=== PATIENT | male | born 1965 | race Caucasian/White ===

== ENCOUNTER 2019-10-02 22:45 | Emergency (ER) | payer OTHER ==
[~2019-10-02] VITALS: Ht 182.9 cm; Wt 131.5 kg
[2019-10-02] MEDS ORDERED: METFORMIN HCL500 M3 PO (23:29)
[2019-10-02] MEDS ORDERED: NEURONTIN300 MG PO (23:30)
[2019-10-02] MEDS ORDERED: LISINOPRIL-HCT1 EAC2 PO (23:31)
[2019-10-02] MEDS ORDERED: LOPRESSOR50 MG PO (23:31)
[2019-10-02] MEDS ORDERED: ASA81BEC PO (23:31)
[2019-10-02] MEDS ORDERED: FLOMAX0.4 MG PO (23:32)
[2019-10-03 00:13] LABS: ABSOLUTE EOSINOPHILS 0.2 thou/uL (0.0-0.7); ABSOLUTE LYMPHOCYTES 2.8 thou/uL (0.8-5.3); ABSOLUTE MONOCYTES 0.8 thou/uL (0.0-1.2); ABSOLUTE NEUTROPHILS 5.8 thou/uL (1.6-8.1); BASOPHILS 0.4 %; EOSINOPHILS 2.3 %; HEMATOCRIT 42.7 % (42.0-52.0); HEMOGLOBIN 14.9 gm/dL (14.0-18.0); LYMPHOCYTES 29.2 %; MCHC 34.9 g/dL (28.0-37.0); MONOCYTES 8.1 %; MPV 8.9 fl. (7.2-11.1); NUCLEATED RBCS 0 /100WBC; PLATELET COUNT* 217 thou/uL (150-400); RBC 4.96 mil/uL (4.50-6.00); RDW-CV 14.7 % (10.5-14.5); WBC 9.7 thou/uL (4.0-11.0)
[2019-10-03 00:20] LABS: CALCIUM 8.9 mg/dL (8.5-10.1); CREATININE 0.8 mg/dL (0.6-1.3); POTASSIUM 3.8 mmol/L (3.5-5.1)
[2019-10-03 00:25] LABS: ALBUMIN 3.3 g/dL (3.4-5.0); TOTAL BILIRUBIN 0.3 mg/dL (<0.1-1.0); TOTAL PROTEIN 6.9 g/dL (6.4-8.2)
[2019-10-03] MEDS ORDERED: NORCO 5-325 TA1 EAC1 PO (02:52)
[2019-10-03] MEDS ORDERED: XARELTO15 MG PO (02:52)
[2019-10-03] MEDS ORDERED: XARELTO20 MG PO (02:52)
[2019-10-03 03:10] VITALS: BP 117/73
== END 2019-10-03 03:10 | disposition home or self-care (01) ==
LOC: M.ERS 22:45
PROVIDERS: Family Medicine
DX: I82.412 Acute embolism and thrombosis of left femoral vein (principal); I82.432 Acute embolism and thrombosis of left popliteal vein; I10 Essential (primary) hypertension; E78.00 Pure hypercholesterolemia, unspecified; I48.91 Unspecified atrial fibrillation; E11.9 Type 2 diabetes mellitus without complications; J44.9 Chronic obstructive pulmonary disease, unspecified; F17.210 Nicotine dependence, cigarettes, uncomplicated; Z88.6 Allergy status to analgesic agent

== ENCOUNTER 2019-10-05 23:55 | Observation (INO) | payer OTHER ==
[~2019-10-05] VITALS: Ht 182.9 cm; Wt 143.8 kg
[~2019-10-05 23:55] MED LIST: ASA81BEC PO; FLOMAX0.4 MG PO; LISINOPRIL-HCT1 EAC2 PO; LOPRESSOR50 MG PO; METFORMIN HCL500 M3 PO; NEURONTIN300 MG PO; NORCO 5-325 TA1 EAC1 PO; XARELTO15 MG PO; XARELTO20 MG PO
[2019-10-05 23:58] VITALS: BP 150/115
[2019-10-06] MEDS ORDERED: FLEXERIL PO (00:18)
[2019-10-06 00:28] LABS: MPV 9.1 fl. (7.2-11.1); NUCLEATED RBCS 0 /100WBC
[2019-10-06 00:32] LABS: ABSOLUTE EOSINOPHILS 0.3 thou/uL (0.0-0.7); ABSOLUTE LYMPHOCYTES 3.3 thou/uL (0.8-5.3); ABSOLUTE MONOCYTES 0.8 thou/uL (0.0-1.2); ABSOLUTE NEUTROPHILS 4.5 thou/uL (1.6-8.1); BASOPHILS 0.4 %; EOSINOPHILS 3.7 %; HEMOGLOBIN 15.1 gm/dL (14.0-18.0); LYMPHOCYTES 36.6 %; MCH 30.7 pg (26.0-34.0); MCHC 35.2 g/dL (28.0-37.0); MCV 87.3 fL (80.0-100.0); MONOCYTES 8.9 %; PLATELET COUNT* 231 thou/uL (150-400); POLYS 50.4 %; RBC 4.93 mil/uL (4.50-6.00); RDW-CV 14.5 % (10.5-14.5)
[2019-10-06 00:36] LABS: APTT 29.9 Seconds (25.0-31.3); INR 1.1; PROTIME 10.8 Seconds (9.20-11.50)
[2019-10-06 00:37] LABS: CALCIUM 8.9 mg/dL (8.5-10.1); POTASSIUM 3.8 mmol/L (3.5-5.1)
[2019-10-06 00:47] LABS: ALBUMIN 3.3 g/dL (3.4-5.0); MAGNESIUM 1.4 mg/dL (1.8-2.4); TOTAL BILIRUBIN 0.3 mg/dL (<0.1-1.0); TOTAL PROTEIN 7.2 g/dL (6.4-8.2)
[2019-10-06 02:30] VITALS: BP 141/78
[2019-10-06 08:30] VITALS: BP 146/80
[2019-10-06] MEDS ORDERED: VENTOLIN HFA 1818 GM INH (10:55)
[2019-10-06] MEDS ORDERED: NORCO 5-325 TA1 EAC1 PO (10:59)
[2019-10-06 11:50] VITALS: BP 159/90
[2019-10-06 15:17] VITALS: BP 159/90
--- NOTE | 2019-10-08 09:55 | EKG ---
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 : 1965 Requested By: Alejandro Sellers Order Number: [id number] MD: Srinath Valverde Measurements Intervals [place] Rate: 90 P: 53 IN: 152 QRS: 37 QRSD: 84 T: 15 QT: 348 QTc: 426 Interpretive Statements Sinus rhythm nonspecific st changes Low voltage, precordial leads No previous ECG available for comparison Electronically Signed On 10-08-2019 9:54:36 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
--- NOTE | 2019-10-08 15:08 | EKG ---
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
== END 2019-10-06 15:56 | disposition home or self-care (01) ==
LOC: M.ERS 23:55 → M.2W 10-06 02:05 → M.TBA-ER 10-06 02:05 → M.2W 10-06 03:10
PROVIDERS: Emergency Medicine Emergency Medical Services; ADMIT Internal Medicine
DX: I26.99 Other pulmonary embolism without acute cor pulmonale (principal); J44.9 Chronic obstructive pulmonary disease, unspecified; E11.9 Type 2 diabetes mellitus without complications; I10 Essential (primary) hypertension; E78.00 Pure hypercholesterolemia, unspecified; I48.91 Unspecified atrial fibrillation; M19.90 Unspecified osteoarthritis, unspecified site

== ENCOUNTER 2019-12-09 13:39 | Emergency (ER) | payer OTHER ==
[~2019-12-09] VITALS: Ht 182.9 cm; Wt 128.4 kg
[~2019-12-09 13:39] MED LIST changes: +FLEXERIL PO; +VENTOLIN HFA 1818 GM INH
[2019-12-09 14:21] LABS: ABSOLUTE EOSINOPHILS 0.2 thou/uL (0.0-0.7); ABSOLUTE LYMPHOCYTES 2.4 thou/uL (0.8-5.3); ABSOLUTE MONOCYTES 0.5 thou/uL (0.0-1.2); ABSOLUTE NEUTROPHILS 5.7 thou/uL (1.6-8.1); BASOPHILS 0.3 %; EOSINOPHILS 2.4 %; HEMATOCRIT 45.6 % (42.0-52.0); HEMOGLOBIN 16.5 gm/dL (14.0-18.0); LYMPHOCYTES 27.2 %; MCH 31.2 pg (26.0-34.0); MCHC 36.2 g/dL (28.0-37.0); MCV 86.2 fL (80.0-100.0); MONOCYTES 6.1 %; MPV 9.1 fl. (7.2-11.1); NUCLEATED RBCS 0 /100WBC; PLATELET COUNT* 228 thou/uL (150-400); RBC 5.29 mil/uL (4.50-6.00); RDW-CV 15.2 % (10.5-14.5); WBC 8.8 thou/uL (4.0-11.0)
[2019-12-09 14:23] LABS: INFLUENZA A ANTIGEN Negative (Negative); INFLUENZA B ANTIGEN Negative (Negative)
[2019-12-09 14:35] LABS: APTT 24.3 Seconds (25.0-31.3); PROTIME 9.8 Seconds (9.20-11.50)
[2019-12-09 15:15] LABS: POTASSIUM 4.2 mmol/L (3.5-5.1)
[2019-12-09 15:17] LABS: BUN 10.8 mg/dL (7-18); CREATININE 0.6 mg/dL (0.6-1.3); GLUCOSE 356.4 mg/dL (70-99)
[2019-12-09 15:18] LABS: ALKALINE PHOSPHATASE 94.8 U/L (46-116); CALCIUM 7.9 mg/dL (8.5-10.1); SGPT 27.6 U/L (30-65); TOTAL BILIRUBIN 0.2 mg/dL (<0.1-1.0)
[2019-12-09 15:19] LABS: TOTAL PROTEIN 6.2 g/dL (6.4-8.2)
[2019-12-09] MEDS ORDERED: MEDROLDOSEPACK PO (16:53)
[2019-12-09] MEDS ORDERED: TYLENOL WITH CO1 TA1 PO (16:53)
[2019-12-09] MEDS ORDERED: DOXYCYCLINE 10100 MG PO (16:53)
[2019-12-09 17:37] VITALS: BP 137/93
--- NOTE | 2019-12-10 16:27 | EKG ---
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: [place] : 1965 Requested By: Meliza Beal Order Number: [id number] MD: Real Cedeno Measurements Intervals [place] Rate: 97 P: 51 [place]: 146 QRS: 32 QRSD: 87 T: 23 QT: 325 QTc: 413 Interpretive Statements Sinus rhythm Low voltage, precordial leads Baseline wander in lead(s) V4 Compared to ECG 10/06/2019 00:00:11 ST (T wave) deviation no longer present Electronically Signed On 12-10-2019 16:25:50 CDT by Real Cedeno [email or web address] <ELECTRONICALLY SIGNED> By: Real Cedeno MD, [facility] 12/10/19 1625 1413 1413 Real Cedeno MD, [facility] /EPI
== END 2019-12-09 17:38 | disposition home or self-care (01) ==
LOC: M.ERS 13:39
PROVIDERS: Nurse Practitioner Family
DX: J44.1 Chronic obstructive pulmonary disease with (acute) exacerbation (principal); R07.89 Other chest pain; F17.210 Nicotine dependence, cigarettes, uncomplicated; I10 Essential (primary) hypertension; I48.91 Unspecified atrial fibrillation; E78.00 Pure hypercholesterolemia, unspecified; E11.9 Type 2 diabetes mellitus without complications; E66.01 Morbid (severe) obesity due to excess calories; E78.5 Hyperlipidemia, unspecified; M19.90 Unspecified osteoarthritis, unspecified site; Z86.718 Personal history of other venous thrombosis and embolism; Z88.5 Allergy status to narcotic agent; Z79.82 Long term (current) use of aspirin; Z79.899 Other long term (current) drug therapy

== ENCOUNTER 2020-01-18 21:43 | Emergency (ER) | payer OTHER ==
[~2020-01-18] VITALS: Ht 182.9 cm; Wt 128.8 kg
[~2020-01-18 21:43] MED LIST changes: +DOXYCYCLINE 10100 MG PO; +MEDROLDOSEPACK PO; +TYLENOL WITH CO1 TA1 PO
[2020-01-18] MEDS ORDERED: GLIPIZIDE 10 MG10 MG PO (21:58)
[2020-01-18] MEDS ORDERED: METFORMIN HCL500 M3 PO (21:58)
[2020-01-18] MEDS ORDERED: SIMVASTATIN80 MG PO (21:58)
[2020-01-18] MEDS ORDERED: DRIZALMA SPRINK30 MG PO (21:59)
[2020-01-18] MEDS ORDERED: PRINIVIL20 M1 PO (21:59)
[2020-01-18 22:17] LABS: ABSOLUTE EOSINOPHILS 0.4 thou/uL (0.0-0.7); ABSOLUTE LYMPHOCYTES 3.1 thou/uL (0.8-5.3); ABSOLUTE MONOCYTES 0.8 thou/uL (0.0-1.2); ABSOLUTE NEUTROPHILS 7.3 thou/uL (1.6-8.1); BASOPHILS 0.4 %; EOSINOPHILS 3.1 %; HEMOGLOBIN 14.7 gm/dL (14.0-18.0); LYMPHOCYTES 26.4 %; MCH 29.7 pg (26.0-34.0); MCHC 34.3 g/dL (28.0-37.0); MCV 86.6 fL (80.0-100.0); MONOCYTES 6.9 %; MPV 8.8 fl. (7.2-11.1); NUCLEATED RBCS 0 /100WBC; PLATELET COUNT* 220 thou/uL (150-400); POLYS 63.2 %; RBC 4.96 mil/uL (4.50-6.00); RDW-CV 15.5 % (10.5-14.5); WBC 11.6 thou/uL (4.0-11.0)
[2020-01-18 22:25] LABS: CALCIUM 8.6 mg/dL (8.5-10.1); CREATININE 0.9 mg/dL (0.6-1.3); POTASSIUM 4.1 mmol/L (3.5-5.1)
[2020-01-18 22:28] LABS: APTT 32.3 Seconds (25.0-31.3); INR 1.1; PROTIME 11.6 Seconds (9.20-11.50)
[2020-01-18 22:30] LABS: ALBUMIN 3.2 g/dL (3.4-5.0); TOTAL BILIRUBIN 0.2 mg/dL (<0.1-1.0); TOTAL PROTEIN 6.8 g/dL (6.4-8.2)
[2020-01-18] MEDS ORDERED: HYDROCODON-ACE1 EAC7 PO (23:56)
[2020-01-19 00:12] VITALS: BP 117/82
== END 2020-01-19 00:13 | disposition home or self-care (01) ==
LOC: M.ERS 21:43
PROVIDERS: Personal Emergency Response Attendant
DX: M79.605 Pain in left leg (principal); I10 Essential (primary) hypertension; I48.91 Unspecified atrial fibrillation; E11.9 Type 2 diabetes mellitus without complications; E78.00 Pure hypercholesterolemia, unspecified; E78.5 Hyperlipidemia, unspecified; E66.01 Morbid (severe) obesity due to excess calories; J44.9 Chronic obstructive pulmonary disease, unspecified; J45.909 Unspecified asthma, uncomplicated; M19.90 Unspecified osteoarthritis, unspecified site; F17.210 Nicotine dependence, cigarettes, uncomplicated; Z68.38 Body mass index [BMI] 38.0-38.9, adult; Z86.718 Personal history of other venous thrombosis and embolism; Z88.6 Allergy status to analgesic agent

== ENCOUNTER 2020-02-26 16:51 | Emergency (ER) | payer OTHER ==
[~2020-02-26] VITALS: Ht 182.9 cm; Wt 127.0 kg
[~2020-02-26 16:51] MED LIST changes: +DRIZALMA SPRINK30 MG PO; +GLIPIZIDE 10 MG10 MG PO; +HYDROCODON-ACE1 EAC7 PO; +PRINIVIL20 M1 PO; +SIMVASTATIN80 MG PO
[2020-02-26] MEDS ORDERED: NORCO 5-325 TA1 EAC1 PO (17:30)
[2020-02-26] MEDS ORDERED: DOXYCYCLINE 10100 MG PO ×2 (17:30)
[2020-02-26 17:36] VITALS: BP 161/92
== END 2020-02-26 17:37 | disposition home or self-care (01) ==
LOC: M.ERS 16:51
DX: L02.214 Cutaneous abscess of groin (principal); L03.314 Cellulitis of groin; J44.9 Chronic obstructive pulmonary disease, unspecified; I10 Essential (primary) hypertension; E11.9 Type 2 diabetes mellitus without complications; I48.91 Unspecified atrial fibrillation; E78.00 Pure hypercholesterolemia, unspecified; J45.909 Unspecified asthma, uncomplicated; E66.01 Morbid (severe) obesity due to excess calories; E78.5 Hyperlipidemia, unspecified; M19.90 Unspecified osteoarthritis, unspecified site; F17.210 Nicotine dependence, cigarettes, uncomplicated; Z68.38 Body mass index [BMI] 38.0-38.9, adult; Z86.718 Personal history of other venous thrombosis and embolism; Z88.6 Allergy status to analgesic agent

== ENCOUNTER 2020-03-13 21:20 | Emergency (ER) | payer OTHER ==
[~2020-03-13] VITALS: Ht 175.3 cm; Wt 122.5 kg
[2020-03-13] MEDS ORDERED: TYLENOL WITH CO1 TA1 PO (22:18)
[2020-03-13] MEDS ORDERED: DOXYCYCLINE 10100 MG PO (22:18)
[2020-03-13 22:39] VITALS: BP 156/91
== END 2020-03-13 22:41 | disposition home or self-care (01) ==
LOC: M.ERS 21:20
DX: L02.415 Cutaneous abscess of right lower limb (principal); F17.210 Nicotine dependence, cigarettes, uncomplicated; E78.00 Pure hypercholesterolemia, unspecified; E78.5 Hyperlipidemia, unspecified; I10 Essential (primary) hypertension; I48.91 Unspecified atrial fibrillation; J44.9 Chronic obstructive pulmonary disease, unspecified; E66.01 Morbid (severe) obesity due to excess calories; Z68.39 Body mass index [BMI] 39.0-39.9, adult; Z86.718 Personal history of other venous thrombosis and embolism; Z88.5 Allergy status to narcotic agent; Z88.6 Allergy status to analgesic agent; Z79.899 Other long term (current) drug therapy; E11.9 Type 2 diabetes mellitus without complications

== ENCOUNTER 2020-04-30 14:23 | Emergency (ER) | payer OTHER, MEDICAID ==
[~2020-04-30] VITALS: Ht 180.3 cm; Wt 142.9 kg
[2020-04-30 15:04] LABS: URINE BILIRUBIN NEGATIVE (Negative); URINE BLOOD NEGATIVE (Negative); URINE CLARITY CLEAR; URINE COLOR YELLOW; URINE GLUCOSE-RANDOM 3+ (Negative); URINE KETONES NEGATIVE (Negative); URINE LEUKOCYTES-REFLEX NEGATIVE (Negative); URINE NITRITE-REFLEX NEGATIVE (Negative); URINE PROTEIN 2+ (Negative); URINE SPECIFIC GRAVITY >= 1.030 (1.005-1.030); URINE UROBILINOGEN 0.2 E.U./dl (0.2-1.0)
[2020-04-30 15:06] LABS: ABSOLUTE EOSINOPHILS 0.4 thou/uL (0.0-0.7); ABSOLUTE LYMPHOCYTES 2.9 thou/uL (0.8-5.3); ABSOLUTE MONOCYTES 0.9 thou/uL (0.0-1.2); ABSOLUTE NEUTROPHILS 9.1 thou/uL (1.6-8.1); BASOPHILS 0.3 %; EOSINOPHILS 2.7 %; HEMATOCRIT 46.6 % (42.0-52.0); HEMOGLOBIN 16.4 gm/dL (14.0-18.0); LYMPHOCYTES 21.7 %; MCH 30.6 pg (26.0-34.0); MCHC 35.2 g/dL (28.0-37.0); MCV 87.1 fL (80.0-100.0); MPV 9.4 fl. (7.2-11.1); NUCLEATED RBCS 0 /100WBC; PLATELET COUNT* 261 thou/uL (150-400); POLYS 68.3 %; RBC 5.36 mil/uL (4.50-6.00); RDW-CV 14.5 % (10.5-14.5); WBC 13.4 thou/uL (4.0-11.0)
[2020-04-30 15:13] LABS: CRYSTALS None Seen /LPF (None Seen); HYALINE CASTS 0-3 Few /LPF (None Seen); SQUAMOUS 0-3 Few /LPF (0-3); URINE WBC-REFLEX 0-5 Rare /HPF (0-5)
[2020-04-30 15:14] LABS: BACTERIA-REFLEX None Seen /HPF (None Seen); MUCUS None Seen strn/LPF (None Seen); URINE RBC None Seen /HPF (0-2)
[2020-04-30 15:16] LABS: CALCIUM 9.1 mg/dL (8.5-10.1); CREATININE 0.9 mg/dL (0.6-1.3); POTASSIUM 4.4 mmol/L (3.5-5.1)
[2020-04-30 15:21] LABS: AMP/METHAMP Negative (Negative); BARBITURATES Negative (Negative); BENZODIAZEPINES Negative (Negative); COCAINE Negative (Negative); METHADONE Negative (Negative); OPIATES Negative (Negative); PCP Negative (Negative); THC Negative (Negative)
[2020-04-30 15:21] LABS: ALBUMIN 3.5 g/dL (3.4-5.0); TOTAL BILIRUBIN 0.4 mg/dL (<0.1-1.0); TOTAL PROTEIN 7.4 g/dL (6.4-8.2)
[2020-04-30] MEDS ORDERED: NORCO 5-325 TA1 EAC2 PO (16:39)
[2020-04-30] MEDS ORDERED: AMOXICILLIN 50500 MG PO (16:42)
[2020-04-30 16:48] VITALS: BP 120/65
--- NOTE | 2020-04-30 19:04 | EKG ---
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: : 1965 Requested By: Mauro Chopra Order Number: [id number] MD: Real Cedeno Measurements Intervals [place] Rate: 85 P: 40 [place]: 144 QRS: 43 QRSD: 93 T: 23 QT: 353 QTc: 420 Interpretive Statements Sinus rhythm Low voltage, precordial leads Baseline wander in lead(s) V2 Compared to ECG 12/09/2019 14:13:47 No significant changes Electronically Signed On 04-30-2020 19:04:00 CDT by Real Cedeno [email or web address] <ELECTRONICALLY SIGNED> By: Real Cedeno MD, FACC 04/30/20 1904 1441 1441 Real Cedeno MD, [facility] /EPI
== END 2020-04-30 16:51 | disposition home or self-care (01) ==
LOC: M.ERS 14:23
PROVIDERS: Physician Assistant
DX: E11.65 Type 2 diabetes mellitus with hyperglycemia (principal); R42 Dizziness and giddiness; E87.1 Hypo-osmolality and hyponatremia; J32.2 Chronic ethmoidal sinusitis; J44.9 Chronic obstructive pulmonary disease, unspecified; I10 Essential (primary) hypertension; I48.91 Unspecified atrial fibrillation; E78.00 Pure hypercholesterolemia, unspecified; M19.90 Unspecified osteoarthritis, unspecified site; E78.5 Hyperlipidemia, unspecified; E66.01 Morbid (severe) obesity due to excess calories; F17.210 Nicotine dependence, cigarettes, uncomplicated; Z68.41 Body mass index [BMI] 40.0-44.9, adult; Z88.6 Allergy status to analgesic agent; Z86.718 Personal history of other venous thrombosis and embolism; Z79.899 Other long term (current) drug therapy

== ENCOUNTER 2020-05-11 03:27 | Emergency (ER) | payer OTHER, MEDICAID ==
[~2020-05-11] VITALS: Ht 182.9 cm; Wt 142.9 kg
[~2020-05-11 03:27] MED LIST changes: +AMOXICILLIN 50500 MG PO; +NORCO 5-325 TA1 EAC2 PO
[2020-05-11 04:05] LABS: ABSOLUTE EOSINOPHILS 0.3 thou/uL (0.0-0.7); ABSOLUTE LYMPHOCYTES 2.2 thou/uL (0.8-5.3); ABSOLUTE MONOCYTES 0.7 thou/uL (0.0-1.2); ABSOLUTE NEUTROPHILS 5.6 thou/uL (1.6-8.1); BASOPHILS 0.2 %; EOSINOPHILS 3.6 %; HEMATOCRIT 42.8 % (42.0-52.0); HEMOGLOBIN 15.1 gm/dL (14.0-18.0); LYMPHOCYTES 25.2 %; MCH 30.6 pg (26.0-34.0); MCHC 35.2 g/dL (28.0-37.0); MONOCYTES 7.8 %; MPV 9.1 fl. (7.2-11.1); NUCLEATED RBCS 0 /100WBC; PLATELET COUNT* 187 thou/uL (150-400); POLYS 63.2 %; RBC 4.92 mil/uL (4.50-6.00); RDW-CV 14.4 % (10.5-14.5); WBC 8.9 thou/uL (4.0-11.0)
[2020-05-11 04:15] LABS: CREATININE 0.9 mg/dL (0.6-1.3)
[2020-05-11 04:19] LABS: APTT 30.1 Seconds (25.0-31.3); INR 1.2; PROTIME 12.3 Seconds (9.20-11.50)
[2020-05-11 04:27] LABS: CK-MB MASS 0.7 ng/mL (<0.5-3.6); MAGNESIUM 1.5 mg/dL (1.8-2.4); TOTAL BILIRUBIN 0.3 mg/dL (<0.1-1.0); TOTAL PROTEIN 6.8 g/dL (6.4-8.2)
[2020-05-11] MEDS ORDERED: NORCO 5-325 TA1 EAC2 PO (06:14)
[2020-05-11 06:34] VITALS: BP 143/79
--- NOTE | 2020-05-11 14:18 | EKG ---
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[place] : 1965 Requested By: Chris Renae Order Number: [id number] MD: Srinath Valverde Measurements Intervals [place] Rate: 92 P: 76 [place]: 170 QRS: 50 QRSD: 91 T: 42 QT: 347 QTc: 430 Interpretive Statements Sinus rhythm Low voltage, precordial leads poor r wave progression Compared to ECG 04/30/2020 14:41:07 no change Electronically Signed On 05-11-2020 14:18:16 CDT by Srinath Valverde [email or web address] <ELECTRONICALLY SIGNED> By: Srinath Valverde MD, [facility] 05/11/20 1418 0330 0330 Srinath Valverde MD, [facility] /EPI
== END 2020-05-11 06:35 | disposition home or self-care (01) ==
LOC: M.ERS 03:27
PROVIDERS: Family Medicine
DX: S50.02XA Contusion of left elbow, initial encounter (principal); R07.89 Other chest pain; I10 Essential (primary) hypertension; I48.91 Unspecified atrial fibrillation; E78.00 Pure hypercholesterolemia, unspecified; E78.5 Hyperlipidemia, unspecified; E66.01 Morbid (severe) obesity due to excess calories; J44.9 Chronic obstructive pulmonary disease, unspecified; J45.909 Unspecified asthma, uncomplicated; M19.90 Unspecified osteoarthritis, unspecified site; F17.210 Nicotine dependence, cigarettes, uncomplicated; Z86.718 Personal history of other venous thrombosis and embolism; Z68.41 Body mass index [BMI] 40.0-44.9, adult; Z88.6 Allergy status to analgesic agent; Z88.8 Allergy status to other drugs, medicaments and biological substances; W22.8XXA Striking against or struck by other objects, initial encounter; Y93.89 Activity, other specified; Y92.89 Other specified places as the place of occurrence of the external cause; Y99.8 Other external cause status

== ENCOUNTER 2020-05-21 23:09 | Emergency (ER) | payer OTHER, MEDICAID ==
[~2020-05-21] VITALS: Ht 182.9 cm; Wt 142.9 kg
[2020-05-21] MEDS ORDERED: JANUVIA25 MG PO (23:24)
[2020-05-22] MEDS ORDERED: HYDROCODON-ACE1 EAC8 PO (02:22)
[2020-05-22] MEDS ORDERED: DOXYCYCLINE 10100 MG PO (02:22)
[2020-05-22 02:32] VITALS: BP 147/101
== END 2020-05-22 02:32 | disposition home or self-care (01) ==
LOC: M.ERS 23:09
DX: L02.415 Cutaneous abscess of right lower limb (principal); I10 Essential (primary) hypertension; I48.91 Unspecified atrial fibrillation; E11.9 Type 2 diabetes mellitus without complications; E78.00 Pure hypercholesterolemia, unspecified; E78.5 Hyperlipidemia, unspecified; E66.01 Morbid (severe) obesity due to excess calories; J44.9 Chronic obstructive pulmonary disease, unspecified; J45.909 Unspecified asthma, uncomplicated; M19.90 Unspecified osteoarthritis, unspecified site; F17.210 Nicotine dependence, cigarettes, uncomplicated; Z68.41 Body mass index [BMI] 40.0-44.9, adult; Z86.718 Personal history of other venous thrombosis and embolism; Z88.6 Allergy status to analgesic agent; Z88.8 Allergy status to other drugs, medicaments and biological substances

== ENCOUNTER 2020-05-28 22:49 | Emergency (ER) | payer OTHER, MEDICAID ==
[~2020-05-28] VITALS: Ht 182.9 cm; Wt 142.0 kg
[~2020-05-28 22:49] MED LIST changes: +HYDROCODON-ACE1 EAC8 PO; +JANUVIA25 MG PO
[2020-05-29 00:06] LABS: ABSOLUTE EOSINOPHILS 0.3 thou/uL (0.0-0.7); ABSOLUTE LYMPHOCYTES 2.8 thou/uL (0.8-5.3); ABSOLUTE MONOCYTES 0.8 thou/uL (0.0-1.2); ABSOLUTE NEUTROPHILS 5.9 thou/uL (1.6-8.1); BASOPHILS 0.1 %; EOSINOPHILS 3.2 %; HEMATOCRIT 45.2 % (42.0-52.0); HEMOGLOBIN 16.1 gm/dL (14.0-18.0); LYMPHOCYTES 28.4 %; MCH 30.8 pg (26.0-34.0); MCHC 35.7 g/dL (28.0-37.0); MCV 86.4 fL (80.0-100.0); MONOCYTES 8.1 %; MPV 9.4 fl. (7.2-11.1); NUCLEATED RBCS 0 /100WBC; PLATELET COUNT* 230 thou/uL (150-400); POLYS 60.2 %; RBC 5.23 mil/uL (4.50-6.00); RDW-CV 14.4 % (10.5-14.5); WBC 9.8 thou/uL (4.0-11.0)
[2020-05-29 00:10] LABS: CALCIUM 9.4 mg/dL (8.5-10.1); POTASSIUM 3.8 mmol/L (3.5-5.1)
[2020-05-29 00:15] LABS: ALBUMIN 3.4 g/dL (3.4-5.0); TOTAL BILIRUBIN 0.2 mg/dL (<0.1-1.0); TOTAL PROTEIN 7.4 g/dL (6.4-8.2)
[2020-05-29 00:52] LABS: URINE BILIRUBIN NEGATIVE (Negative); URINE BLOOD NEGATIVE (Negative); URINE CLARITY CLEAR; URINE COLOR YELLOW; URINE GLUCOSE-RANDOM NEGATIVE (Negative); URINE KETONES NEGATIVE (Negative); URINE LEUKOCYTES-REFLEX NEGATIVE (Negative); URINE NITRITE-REFLEX NEGATIVE (Negative); URINE PROTEIN 2+ (Negative); URINE SPECIFIC GRAVITY >= 1.030 (1.005-1.030); URINE UROBILINOGEN 0.2 E.U./dl (0.2-1.0)
[2020-05-29 01:00] LABS: AMP/METHAMP Negative (Negative); BARBITURATES Negative (Negative); BENZODIAZEPINES Negative (Negative); COCAINE Negative (Negative); METHADONE Negative (Negative); OPIATES POSITIVE (Negative); PCP Negative (Negative); THC Negative (Negative)
[2020-05-29 01:08] LABS: CRYSTALS None Seen /LPF (None Seen); FINE GRANULAR CASTS 0-3 Few /LPF (None Seen); MUCUS 4-6 Moderate strn/LPF (None Seen); SQUAMOUS 0-3 Few /LPF (0-3); URINE RBC 0-2 Rare /HPF (0-2); URINE WBC-REFLEX None Seen /HPF (0-5)
[2020-05-29] MEDS ORDERED: KEFLEX500 M1 PO (02:28)
[2020-05-29] MEDS ORDERED: ZOFRAN ODT4 MG PO (02:28)
[2020-05-29 02:45] VITALS: BP 115/74
== END 2020-05-29 02:45 | disposition home or self-care (01) ==
LOC: M.ERS 22:49
PROVIDERS: Personal Emergency Response Attendant
DX: N39.0 Urinary tract infection, site not specified (principal); R11.2 Nausea with vomiting, unspecified; I10 Essential (primary) hypertension; I48.91 Unspecified atrial fibrillation; E11.9 Type 2 diabetes mellitus without complications; E78.00 Pure hypercholesterolemia, unspecified; E78.5 Hyperlipidemia, unspecified; E66.01 Morbid (severe) obesity due to excess calories; J44.9 Chronic obstructive pulmonary disease, unspecified; J45.909 Unspecified asthma, uncomplicated; M19.90 Unspecified osteoarthritis, unspecified site; F17.210 Nicotine dependence, cigarettes, uncomplicated; Z86.718 Personal history of other venous thrombosis and embolism; Z68.41 Body mass index [BMI] 40.0-44.9, adult; Z88.8 Allergy status to other drugs, medicaments and biological substances